=== PATIENT | female | born 1955 | race African-American/Black ===

== ENCOUNTER 2021-12-09 05:25 | Inpatient (IN) ==
[2021-12-09] MEDS ORDERED: propofoL 200 MG/20 ML VIAL IV ONE (06:00)
[2021-12-09] MEDS ORDERED: ROCURONIUM 50 MG/5 ML VIAL IV ONE (06:00)
[2021-12-09] MEDS ORDERED: ALVIMOPAN 12 MG CAPSULE PO ONE (06:00)
[2021-12-09] MEDS ORDERED: LEVOFLOXACIN INJ 500 MG/100 ML PREMIX IV ONE (06:00)
[2021-12-09] MEDS ORDERED: LIDOCAINE 2% 5 ML VIAL ONE (06:01)
[2021-12-09] MEDS ORDERED: MIDAZOLAM 2 MG/2 ML VIAL ONE (06:24)
[2021-12-09] MEDS ORDERED: fentaNYL 250 MCG/5 ML VIAL ONE (06:25)
[2021-12-09] MEDS ORDERED: LACTATED RINGERS 1,000 ML IV SCH (07:00)
[2021-12-09] MEDS ORDERED: ePHEDrine 50 MG/ML VIAL ONE (07:28)
[2021-12-09] MEDS ORDERED: DEXAMETHASONE 4 MG/1 ML VIAL ONE (08:13)
[2021-12-09] MEDS ORDERED: ONDANSETRON 4 MG/2 ML VIAL ONE (08:13)
[2021-12-09] MEDS ORDERED: NEOSTIGMINE 10 MG/10 ML VIAL ONE (08:42)
[2021-12-09] MEDS ORDERED: ONDANSETRON 4 MG/2 ML VIAL IV PRN ×2 (08:59→09:35)
[2021-12-09] MEDS ORDERED: MECLIZINE 25 MG TABLET PO PRN (09:02)
[2021-12-09] MEDS ORDERED: PHENYLEPHRINE DRIP 20 MG/250 ML PREMIX IV ONE (09:20)
[2021-12-09] MEDS ORDERED: GLYCOPYRROLATE 0.4 MG/2 ML VIAL ONE (09:23)
[2021-12-09] MEDS ORDERED: SEVOFLURANE 1 UNIT/15 MINUTE INH ONE (09:23)
[2021-12-09] MEDS: HYDROmorphone 2 MG/1 ML VIAL IV PRN ×5 (09:40→21:09)
[2021-12-09 09:41] LABS: Bacteria,Urine Occasional /HPF (Few); Bilirubin,Urine Negative (Negative); Blood, Urine Small mg/dL (Negative); Glucose,Urine (UA) Negative (Negative); Hyaline Casts,Urine 7 /LPF (0-3); Ketones,Urine Negative (Negative); Mucus,Urine Few /LPF (Occasional); Nitrite,Urine Negative (Negative); Protein,Urine 100 MG/DL; RBC,Urine 10 /HPF (0-4); Squamous Epithelial Cell,Urine Occasional /HPF (0-10); Urine Appearance Slightly Hazy (Clear); Urine Color Yellow (Yellow); Urine Specific Gravity 1.017 (1.001-1.035); Urine Urobilinogen < 2.0 EU/DL (<2.0)
[2021-12-09] MEDS: SODIUM CHLORIDE 0.9% 1,000 ML IV SCH (13:33)
[2021-12-09] MEDS: metFORMIN 850 MG TABLET PO SCH ×2 (16:23→21:19)
[2021-12-09] MEDS: oxyCODONE/ACETAMINOPHEN 5-325 MG TABLET PO PRN (16:23)
[2021-12-09] MEDS ORDERED: SIMVASTATIN 10 MG TABLET PO SCH (17:00)
[2021-12-09] MEDS ORDERED: INSULIN GLARGINE 100 UNIT/ML SUBCUT SCH (21:00)
[2021-12-10] MEDS: HYDROmorphone 2 MG/1 ML VIAL IV PRN (01:28)
[2021-12-10 07:08] LABS: Basophils % 0.2 % (0.0-0.8); Hematocrit 37.4 VOL% (35.7-47.0); Hemoglobin 12.3 GM/DL (12.0-16.0); Immature Granulocytes % 0.3 %; Immature Granulocytes Absolute 0.03 #; Lymphocytes # 1.2 10*3/uL (1.4-4.0); Lymphocytes % 12.1 % (21.3-54.2); Mean Corpuscular HGB Conc 32.9 GM/DL (32-36); Mean Platelet Volume 10.8 FL (9.6-12.0); Monocytes % 13.3 % (1.7-12.7); Neutrophils % 74.1 % (38.7-73.9); Platelet Count 262 T/CUMM (130-400); Red Blood Count 4.11 MC/CUMM (3.8-5.5); Red Cell Distribution Width 13.6 % (9.3-17.3); White Blood Count 9.5 T/CUMM (4-12)
[2021-12-10 07:28] LABS: Calcium 8.6 MG/DL (8.5-10.1); Potassium 3.6 MMOL/L (3.5-5.1)
[2021-12-10] MEDS ORDERED: glipiZIDE 5 MG TABLET PO SCH (08:00)
[2021-12-10] MEDS: oxyCODONE/ACETAMINOPHEN 5-325 MG TABLET PO PRN (08:44)
[2021-12-10] MEDS: metFORMIN 850 MG TABLET PO SCH (08:44)
[2021-12-10] MEDS ORDERED: OLMESARTAN 20 MG TABLET PO SCH (09:00)
[2021-12-10] MEDS ORDERED: amLODIPine 10 MG TABLET PO SCH (09:00)
[2021-12-10] MEDS: SODIUM CHLORIDE 0.9% 1,000 ML IV SCH (10:19)
[2021-12-10 13:16] VITALS: BP 150/68
[2021-12-10] MEDS ORDERED: carvediloL 12.5 MG TABLET PO SCH (17:00)
[2021-12-21] MEDS ORDERED: (Semaglutide [Ozempic] 0.25 mg or 0.5 mg(2 mg/1.5 mL) Pen Injecto SUBCUT SCH (09:00)
== END 2021-12-10 13:14 | disposition home or self-care (01) | DRG 658 ==
LOC: N.OR 05:25 → N.SDSINP 05:26 → N.3E 10:24
PROVIDERS: ADMIT Urology; ATTEND Urology

== ENCOUNTER 2022-08-24 18:10 | Inpatient (IN) ==
[2022-08-24] MEDS ORDERED: SODIUM CHLORIDE 0.9% 2,000 ML IV STA (18:21)
[2022-08-24 18:36] LABS: Basophils % 0.2 % (0.0-0.8); Eosinophils # 0.1 10*3/uL (0.0-0.87); Eosinophils % 1.2 % (0.00-10.9); Hemoglobin 16.5 GM/DL (12.0-16.0); Immature Granulocytes % 0.8 %; Immature Granulocytes Absolute 0.07 #; Lymphocytes # 2.8 10*3/uL (1.4-4.0); Lymphocytes % 30.4 % (21.3-54.2); Mean Corpuscular HGB Conc 32.4 GM/DL (32-36); Mean Corpuscular Volume 92.2 FL (87-102); Mean Platelet Volume 10.5 FL (9.6-12.0); Monocytes # 0.2 10*3/uL (0.11-0.8); Monocytes % 2.4 % (1.7-12.7); Platelet Count 296 T/CUMM (130-400); Red Blood Count 5.53 MC/CUMM (3.8-5.5); Red Cell Distribution Width 12.6 % (9.3-17.3); White Blood Count 9.2 T/CUMM (4-12)
[2022-08-24] MEDS ORDERED: NOREPINEPHRINE 8 MG in SODIUM CHLORIDE 0.9% 242 ML IV PRN (18:38)
[2022-08-24 18:41] LABS: Arterial Base Excess iSTAT -22 MMOL/L (-2.5-2.5); Arterial Bicarbonate iSTAT 4.7 MMOL/L (20-26); Arterial O2 Saturation iSTAT 82 % (95-100); Arterial PCO2 iSTAT 14 MM HG (35-48); Arterial PO2 iSTAT 58 MM HG (80-95); Arterial Total CO2 iSTAT 5 MMO/L (23-27); Arterial pH iSTAT 7.147 (7.35-7.45)
[2022-08-24] MEDS ORDERED: NOREPINEPHRINE 4 MG/4 ML VIAL IV ONE (18:53)
[2022-08-24 18:54] LABS: Alanine Aminotransferase 42 U/L (13-56); Albumin 2.9 G/DL (3.4-5.0); Alkaline Phosphatase 79 U/L (45-117); Aspartate Amino Transferase 36 U/L (0-37); Bilirubin,Total < 0.39 MG/DL (0.20-1.00); Blood Urea Nitrogen 16 MG/DL (7-18); Calcium 8.5 MG/DL (8.5-10.1); Carbon Dioxide 17 MMOL/L (21-32); Chloride 109 MMOL/L (98-107); Glucose 354 MG/DL (74-106); Osmolality,Calculated 289.7 MOS/KG (273-304); Potassium 3.4 MMOL/L (3.5-5.1); Sodium 138 MMOL/L (136-145); Total Protein 6.7 G/DL (6.4-8.2)
[2022-08-24 19:16] LABS: INR 1.2; Partial Thromboplastin Time 23.1 SECS (23.7-32.9)
[2022-08-24 19:26] LABS: Bilirubin,Urine Negative (Negative); Blood, Urine Negative (Negative); Glucose,Urine (UA) 500 mg/dL (Negative); Ketones,Urine Negative (Negative); Nitrite,Urine Negative (Negative); Protein,Urine Negative (Negative); Urine Appearance Clear (Clear); Urine Color Yellow (Yellow); Urine Urobilinogen 0.2 eU/dL (<2.0); Urine pH 5.5 (4.5-8.0)
[2022-08-24 19:28] LABS: Bacteria,Urine Occasional /HPF (Few); Squamous Epithelial Cell,Urine Occasional /HPF (0-10)
[2022-08-24] MEDS ORDERED: VANCOMYCIN INJ 1,000 MG in SODIUM CHLORIDE 0.9% 250 ML IV STA (20:42)
[2022-08-24] MEDS ORDERED: PIPERACILLIN/TAZOBACTAM 3,375 MG in SODIUM CHLORIDE 0.9% 100 ML IV STA (20:42)
[2022-08-24] MEDS ORDERED: GLUCAGON 1 MG VIAL IM PRN (21:33)
[2022-08-24] MEDS ORDERED: ONDANSETRON 4 MG/2 ML VIAL IV PRN (21:33)
[2022-08-24] MEDS ORDERED: DOCUSATE SODIUM 100 MG CAPSULE PO PRN (21:33)
[2022-08-24] MEDS ORDERED: ALBUTEROL 2.5 MG/3 ML NEB RESP TX PRN (21:33)
[2022-08-24] MEDS ORDERED: DEXTROSE 10% 250 ML BAG IV PRN (21:49)
[2022-08-24] MEDS: SODIUM CHLORIDE 0.9% 1,000 ML IV SCH (22:41)
[2022-08-25] MEDS ORDERED: SODIUM CHLORIDE 0.9% 500 ML IV ONE (00:53)
[2022-08-25] MEDS: ALBUTEROL/IPRATROPIUM 3 ML NEB RESP TX SCH ×4 (01:04→19:19)
[2022-08-25] MEDS ORDERED: MAGNESIUM SULF RIDER 2 GM/50 ML PREMIX IV PRN (01:21)
[2022-08-25] MEDS ORDERED: MAGNESIUM SULF RIDER 4 GM/100 ML PREMIX IV PRN (01:21)
[2022-08-25 03:40] LABS: Arterial Base Excess iSTAT -4 MMOL/L (-2.5-2.5); Arterial Bicarbonate iSTAT 21.3 MMOL/L (20-26); Arterial O2 Saturation iSTAT 94 % (95-100); Arterial PCO2 iSTAT 40 MM HG (35-48); Arterial PO2 iSTAT 76 MM HG (80-95); Arterial Total CO2 iSTAT 23 MMO/L (23-27); Arterial pH iSTAT 7.337 (7.35-7.45)
[2022-08-25 04:08] LABS: Basophils % 0.2 % (0.0-0.8); Eosinophils % 0.1 % (0.00-10.9); Hematocrit 42.7 VOL% (35.7-47.0); Hemoglobin 14.5 GM/DL (12.0-16.0); Immature Granulocytes % 0.5 %; Immature Granulocytes Absolute 0.09 #; Lymphocytes # 0.9 10*3/uL (1.4-4.0); Lymphocytes % 5.5 % (21.3-54.2); Mean Corpuscular Volume 89.1 FL (87-102); Neutrophils % 87.7 % (38.7-73.9); Platelet Count 201 T/CUMM (130-400); Red Blood Count 4.79 MC/CUMM (3.8-5.5); Red Cell Distribution Width 12.6 % (9.3-17.3); White Blood Count 16.9 T/CUMM (4-12)
[2022-08-25 04:29] LABS: Albumin 2.7 G/DL (3.4-5.0); Band Neutrophils 2 % (0-10); Bilirubin,Total 0.4 MG/DL (0.20-1.00); Calcium 7.3 MG/DL (8.5-10.1); Lymphocytes 2 % (20-55); Osmolality,Calculated 297.7 MOS/KG (273-304); Platelet Estimate Adequate; Potassium 4.1 MMOL/L (3.5-5.1); Total Cells Counted 100; Total Protein 5.8 G/DL (6.4-8.2)
[2022-08-25] MEDS: SODIUM CHLORIDE 0.9% 1,000 ML IV SCH ×2 (06:00→16:00)
[2022-08-25] MEDS: PIPERACILLIN/TAZOBACTAM 3,375 MG in SODIUM CHLORIDE 0.9% 100 ML IV SCH ×3 (06:46→17:58)
[2022-08-25 07:06] LABS: Hematocrit 41.2 VOL% (35.7-47.0); Hemoglobin 13.9 GM/DL (12.0-16.0)
[2022-08-25] MEDS: INSULIN REGULAR 100 UNIT/ML SUBCUT SCH ×4 (08:42→20:18)
[2022-08-25] MEDS: DICYCLOMINE 10 MG CAPSULE PO PRN ×2 (11:23→20:18)
[2022-08-25] MEDS: VANCOMYCIN 125 MG CAPSULE PO SCH ×2 (17:00→20:19)
[2022-08-25 18:45] LABS: Hematocrit 38.7 VOL% (35.7-47.0); Hemoglobin 13.1 GM/DL (12.0-16.0)
[2022-08-25] MEDS ORDERED: VANCOMYCIN INJ 1,250 MG in SODIUM CHLORIDE 0.9% 250 ML IV SCH (21:00)
[2022-08-26] MEDS: ALBUTEROL/IPRATROPIUM 3 ML NEB RESP TX SCH ×5 (00:16→19:40)
[2022-08-26] MEDS: PIPERACILLIN/TAZOBACTAM 3,375 MG in SODIUM CHLORIDE 0.9% 100 ML IV SCH ×3 (01:04→16:25)
[2022-08-26] MEDS: SODIUM CHLORIDE 0.9% 1,000 ML IV SCH ×3 (01:50→22:45)
[2022-08-26] MEDS: VANCOMYCIN 125 MG CAPSULE PO SCH ×4 (02:38→21:02)
[2022-08-26 04:22] LABS: Basophils % 0.3 % (0.0-0.8); Eosinophils # 0.2 10*3/uL (0.0-0.87); Eosinophils % 1.2 % (0.00-10.9); Hematocrit 34.8 VOL% (35.7-47.0); Hemoglobin 11.8 GM/DL (12.0-16.0); Immature Granulocytes % 0.4 %; Immature Granulocytes Absolute 0.05 #; Lymphocytes # 1.5 10*3/uL (1.4-4.0); Lymphocytes % 10.7 % (21.3-54.2); Mean Corpuscular HGB Conc 33.9 GM/DL (32-36); Mean Platelet Volume 10.3 FL (9.6-12.0); Monocytes # 1.1 10*3/uL (0.11-0.8); Monocytes % 8.3 % (1.7-12.7); Neutrophils % 79.1 % (38.7-73.9); Platelet Count 166 T/CUMM (130-400); Red Blood Count 3.91 MC/CUMM (3.8-5.5); Red Cell Distribution Width 12.9 % (9.3-17.3); White Blood Count 13.7 T/CUMM (4-12)
[2022-08-26 04:45] LABS: Albumin 2.7 G/DL (3.4-5.0); Bilirubin,Total 0.4 MG/DL (0.20-1.00); Calcium 7.9 MG/DL (8.5-10.1); Osmolality,Calculated 286.1 MOS/KG (273-304); Potassium 3.4 MMOL/L (3.5-5.1)
[2022-08-26] MEDS: POTASSIUM CHLORIDE RIDER 10 MEQ/100 ML PREMIX IV PRN ×3 (05:12→07:17)
[2022-08-26 07:12] LABS: Hematocrit 35.2 VOL% (35.7-47.0)
[2022-08-26] MEDS: INSULIN REGULAR 100 UNIT/ML SUBCUT SCH ×4 (08:08→21:03)
[2022-08-26] MEDS ORDERED: propofoL 200 MG/20 ML VIAL IV ONE (09:21)
[2022-08-26] MEDS ORDERED: LIDOCAINE 2% 5 ML VIAL ONE (09:21)
[2022-08-26] MEDS: DICYCLOMINE 10 MG CAPSULE PO PRN (11:50)
[2022-08-26] MEDS: BISACODYL 5 MG TABLET PO SCH ×2 (12:00→17:36)
[2022-08-26] MEDS ORDERED: BISACODYL 5 MG TABLET PO SCH (12:45)
[2022-08-26] MEDS ORDERED: POLYETHYLENE GLYCOL POWDER 255 GM BOTTLE PO ONE (18:00)
[2022-08-26 19:20] LABS: Hemoglobin 13.2 GM/DL (12.0-16.0)
[2022-08-26] MEDS ORDERED: cloNIDine 0.1 MG TABLET PO PRN (20:24)
[2022-08-26] MEDS ORDERED: MAGNESIUM CITRATE 300 ML BOTTLE PO ONE (21:00)
[2022-08-26] MEDS ORDERED: MAGNESIUM HYDROXIDE SUSP 30 ML UDCUP PO ONE (21:00)
[2022-08-26] MEDS ORDERED: ALBUTEROL/IPRATROPIUM 3 ML NEB RESP TX PRN (21:29)
[2022-08-26] MEDS: INSULIN GLARGINE 100 UNIT/ML SUBCUT SCH (22:43)
[2022-08-27] MEDS: VANCOMYCIN 125 MG CAPSULE PO SCH ×4 (01:16→20:59)
[2022-08-27] MEDS: PIPERACILLIN/TAZOBACTAM 3,375 MG in SODIUM CHLORIDE 0.9% 100 ML IV SCH ×3 (01:17→23:00)
[2022-08-27] MEDS: BISACODYL 5 MG TABLET PO SCH (01:17)
[2022-08-27 05:43] LABS: Basophils % 0.2 % (0.0-0.8); Eosinophils # 0.3 10*3/uL (0.0-0.87); Eosinophils % 1.8 % (0.00-10.9); Hematocrit 34.2 VOL% (35.7-47.0); Hemoglobin 11.7 GM/DL (12.0-16.0); Immature Granulocytes % 0.9 %; Immature Granulocytes Absolute 0.14 #; Lymphocytes # 1.9 10*3/uL (1.4-4.0); Lymphocytes % 12.6 % (21.3-54.2); Mean Corpuscular HGB Conc 34.2 GM/DL (32-36); Mean Corpuscular Volume 88.4 FL (87-102); Mean Platelet Volume 10.3 FL (9.6-12.0); Monocytes # 1.4 10*3/uL (0.11-0.8); Monocytes % 9.1 % (1.7-12.7); Neutrophils % 75.4 % (38.7-73.9); Platelet Count 154 T/CUMM (130-400); Red Blood Count 3.87 MC/CUMM (3.8-5.5); Red Cell Distribution Width 12.9 % (9.3-17.3); White Blood Count 15.4 T/CUMM (4-12)
[2022-08-27 06:03] LABS: Albumin 2.9 G/DL (3.4-5.0); Bilirubin,Total 0.6 MG/DL (0.20-1.00); Calcium 8.6 MG/DL (8.5-10.1); Osmolality,Calculated 282.3 MOS/KG (273-304); Potassium 2.9 MMOL/L (3.5-5.1); Total Protein 6.9 G/DL (6.4-8.2)
[2022-08-27 06:35] LABS: Eosinophils 2 % (0-10); Lymphocytes 12 % (20-55); Platelet Estimate Adequate; Total Cells Counted 100
[2022-08-27] MEDS: SODIUM CHLORIDE 0.9% 1,000 ML IV SCH ×3 (07:19→21:02)
[2022-08-27] MEDS: POTASSIUM CHLORIDE 20 MEQ TABLET PO PRN (07:19)
[2022-08-27] MEDS: POTASSIUM CHLORIDE RIDER 10 MEQ/100 ML PREMIX IV PRN (08:00)
[2022-08-27] MEDS: glipiZIDE 5 MG TABLET PO SCH (09:04)
[2022-08-27] MEDS: carvediloL 12.5 MG TABLET PO SCH ×2 (09:04→18:14)
[2022-08-27] MEDS: INSULIN REGULAR 100 UNIT/ML SUBCUT SCH ×4 (10:58→21:01)
[2022-08-27] MEDS: LACTATED RINGERS 1,000 ML IV SCH (11:00)
[2022-08-27] MEDS: metroNIDAZOLE INJ 500 MG/100 ML PREMIX IV SCH ×2 (13:36→20:59)
[2022-08-27] MEDS: SIMVASTATIN 10 MG TABLET PO SCH (18:14)
[2022-08-27] MEDS: ACETAMINOPHEN 325 MG TABLET PO PRN (19:04)
[2022-08-27] MEDS: INSULIN GLARGINE 100 UNIT/ML SUBCUT SCH (21:01)
[2022-08-28] MEDS: VANCOMYCIN 125 MG CAPSULE PO SCH ×4 (01:46→20:52)
[2022-08-28] MEDS: metroNIDAZOLE INJ 500 MG/100 ML PREMIX IV SCH ×3 (04:49→20:54)
[2022-08-28 05:37] LABS: Basophils % 0.3 % (0.0-0.8); Eosinophils # 0.4 10*3/uL (0.0-0.87); Eosinophils % 4.1 % (0.00-10.9); Hematocrit 32.3 VOL% (35.7-47.0); Hemoglobin 11.2 GM/DL (12.0-16.0); Immature Granulocytes % 0.6 %; Immature Granulocytes Absolute 0.06 #; Lymphocytes # 2.2 10*3/uL (1.4-4.0); Lymphocytes % 19.9 % (21.3-54.2); Mean Corpuscular HGB Conc 34.7 GM/DL (32-36); Mean Corpuscular Volume 88.5 FL (87-102); Mean Platelet Volume 10.8 FL (9.6-12.0); Monocytes # 0.6 10*3/uL (0.11-0.8); Monocytes % 5.7 % (1.7-12.7); Neutrophils % 69.4 % (38.7-73.9); Platelet Count 181 T/CUMM (130-400); Red Blood Count 3.65 MC/CUMM (3.8-5.5); Red Cell Distribution Width 12.6 % (9.3-17.3); White Blood Count 10.8 T/CUMM (4-12)
[2022-08-28] MEDS: PIPERACILLIN/TAZOBACTAM 3,375 MG in SODIUM CHLORIDE 0.9% 100 ML IV SCH ×3 (06:08→23:02)
[2022-08-28 06:49] LABS: Albumin 2.7 G/DL (3.4-5.0); Bilirubin,Total 0.4 MG/DL (0.20-1.00); Calcium 8.6 MG/DL (8.5-10.1); Osmolality,Calculated 287.6 MOS/KG (273-304); Potassium 3.1 MMOL/L (3.5-5.1); Total Protein 6.3 G/DL (6.4-8.2)
[2022-08-28] MEDS: POTASSIUM CHLORIDE 20 MEQ TABLET PO PRN ×2 (07:01→23:01)
[2022-08-28] MEDS: SODIUM CHLORIDE 0.9% 1,000 ML IV SCH ×3 (07:36→20:54)
[2022-08-28] MEDS: carvediloL 12.5 MG TABLET PO SCH ×2 (08:00→18:05)
[2022-08-28] MEDS: glipiZIDE 5 MG TABLET PO SCH (08:00)
[2022-08-28] MEDS: INSULIN REGULAR 100 UNIT/ML SUBCUT SCH ×4 (08:02→20:53)
[2022-08-28] MEDS: LACTATED RINGERS 1,000 ML IV SCH (10:30)
[2022-08-28] MEDS: SIMVASTATIN 10 MG TABLET PO SCH (18:05)
[2022-08-28] MEDS: INSULIN GLARGINE 100 UNIT/ML SUBCUT SCH (20:54)
[2022-08-29] MEDS: POTASSIUM CHLORIDE 20 MEQ TABLET PO PRN ×6 (01:18→18:50)
[2022-08-29] MEDS: VANCOMYCIN 125 MG CAPSULE PO SCH ×4 (01:18→20:45)
[2022-08-29] MEDS: metroNIDAZOLE INJ 500 MG/100 ML PREMIX IV SCH ×3 (03:18→20:45)
[2022-08-29] MEDS: SODIUM CHLORIDE 0.9% 1,000 ML IV SCH ×3 (03:19→20:44)
[2022-08-29] MEDS: PIPERACILLIN/TAZOBACTAM 3,375 MG in SODIUM CHLORIDE 0.9% 100 ML IV SCH ×3 (06:39→23:27)
[2022-08-29] MEDS: carvediloL 12.5 MG TABLET PO SCH ×2 (08:23→16:52)
[2022-08-29] MEDS: glipiZIDE 5 MG TABLET PO SCH (08:24)
[2022-08-29] MEDS: INSULIN REGULAR 100 UNIT/ML SUBCUT SCH ×4 (08:25→20:46)
[2022-08-29] MEDS: LACTATED RINGERS 1,000 ML IV SCH (12:46)
[2022-08-29] MEDS: SIMVASTATIN 10 MG TABLET PO SCH (16:52)
[2022-08-29] MEDS: INSULIN GLARGINE 100 UNIT/ML SUBCUT SCH (20:46)
[2022-08-30] MEDS: VANCOMYCIN 125 MG CAPSULE PO SCH ×4 (01:28→21:27)
[2022-08-30] MEDS: metroNIDAZOLE INJ 500 MG/100 ML PREMIX IV SCH ×2 (03:29→13:37)
[2022-08-30 05:20] LABS: Basophils # 0.1 10*3/uL (0.0-0.2); Basophils % 0.7 % (0.0-0.8); Eosinophils # 0.5 10*3/uL (0.0-0.87); Eosinophils % 5.2 % (0.00-10.9); Hematocrit 32.5 VOL% (35.7-47.0); Immature Granulocytes % 1.7 %; Immature Granulocytes Absolute 0.15 #; Lymphocytes # 2.2 10*3/uL (1.4-4.0); Lymphocytes % 24.8 % (21.3-54.2); Mean Corpuscular HGB Conc 33.8 GM/DL (32-36); Mean Platelet Volume 9.8 FL (9.6-12.0); Monocytes # 0.8 10*3/uL (0.11-0.8); Neutrophils % 58.6 % (38.7-73.9); Platelet Count 199 T/CUMM (130-400); Red Blood Count 3.65 MC/CUMM (3.8-5.5); Red Cell Distribution Width 12.9 % (9.3-17.3); White Blood Count 8.8 T/CUMM (4-12)
[2022-08-30 05:43] LABS: Calcium 8.6 MG/DL (8.5-10.1); Osmolality,Calculated 284.8 MOS/KG (273-304); Potassium 3.7 MMOL/L (3.5-5.1)
[2022-08-30] MEDS: PIPERACILLIN/TAZOBACTAM 3,375 MG in SODIUM CHLORIDE 0.9% 100 ML IV SCH (06:30)
[2022-08-30] MEDS: INSULIN REGULAR 100 UNIT/ML SUBCUT SCH ×4 (07:54→21:31)
[2022-08-30] MEDS: glipiZIDE 5 MG TABLET PO SCH (09:23)
[2022-08-30] MEDS: carvediloL 12.5 MG TABLET PO SCH ×2 (09:24→16:14)
[2022-08-30] MEDS: LACTATED RINGERS 1,000 ML IV SCH (09:31)
[2022-08-30] MEDS: SODIUM CHLORIDE 0.9% 1,000 ML IV SCH ×2 (09:31→14:52)
[2022-08-30] MEDS: metroNIDAZOLE 500 MG TABLET PO SCH ×2 (14:53→21:27)
[2022-08-30] MEDS: SIMVASTATIN 10 MG TABLET PO SCH (16:14)
[2022-08-30] MEDS: AMOXICILLIN/CLAV 875 MG TABLET PO SCH (21:27)
[2022-08-30] MEDS: INSULIN GLARGINE 100 UNIT/ML SUBCUT SCH (21:27)
[2022-08-30] MEDS: ACETAMINOPHEN 325 MG TABLET PO PRN (21:37)
[2022-08-31] MEDS: cloNIDine 0.1 MG TABLET PO SCH ×2 (02:28→12:04)
[2022-08-31] MEDS: VANCOMYCIN 125 MG CAPSULE PO SCH ×4 (02:29→13:04)
[2022-08-31 05:18] LABS: Basophils % 0.5 % (0.0-0.8); Eosinophils # 0.4 10*3/uL (0.0-0.87); Eosinophils % 5.3 % (0.00-10.9); Hematocrit 31.8 VOL% (35.7-47.0); Hemoglobin 10.6 GM/DL (12.0-16.0); Immature Granulocytes % 1.7 %; Immature Granulocytes Absolute 0.13 #; Lymphocytes # 2.2 10*3/uL (1.4-4.0); Lymphocytes % 28.7 % (21.3-54.2); Mean Corpuscular HGB Conc 33.3 GM/DL (32-36); Mean Corpuscular Volume 89.1 FL (87-102); Mean Platelet Volume 9.6 FL (9.6-12.0); Monocytes # 0.7 10*3/uL (0.11-0.8); Monocytes % 9.4 % (1.7-12.7); Neutrophils % 54.4 % (38.7-73.9); Platelet Count 189 T/CUMM (130-400); Red Blood Count 3.57 MC/CUMM (3.8-5.5); Red Cell Distribution Width 12.9 % (9.3-17.3); White Blood Count 7.8 T/CUMM (4-12)
[2022-08-31 05:39] LABS: Calcium 8.5 MG/DL (8.5-10.1); Osmolality,Calculated 287.8 MOS/KG (273-304); Potassium 3.4 MMOL/L (3.5-5.1)
[2022-08-31] MEDS: INSULIN REGULAR 100 UNIT/ML SUBCUT SCH ×2 (07:21→12:04)
[2022-08-31] MEDS: carvediloL 12.5 MG TABLET PO SCH (08:34)
[2022-08-31] MEDS: metroNIDAZOLE 500 MG TABLET PO SCH (08:34)
[2022-08-31] MEDS: POTASSIUM CHLORIDE 20 MEQ TABLET PO PRN ×2 (08:34→12:04)
[2022-08-31] MEDS: glipiZIDE 5 MG TABLET PO SCH (08:34)
[2022-08-31] MEDS: AMOXICILLIN/CLAV 875 MG TABLET PO SCH (08:34)
[2022-08-31 11:20] VITALS: BP 133/74
== END 2022-08-31 15:10 | disposition home or self-care (01) | DRG 871 ==
LOC: N.ED 18:10 → N.EDINP 20:59 → SUATTDRO 20:59 → N.EDINP 22:21 → N.ICU 22:34 → N.3E 08-26 12:12
PROVIDERS: ADMIT Family Medicine; ATTEND Internal Medicine